=== PATIENT | female | born 1965 | race Caucasian/White ===

== ENCOUNTER → 2017-07-14 | Outpatient (CLI) | payer OTHER ==
[~2017-07-14] MED LIST: Aspir-Low81 MG PO; HEART PILL PO; Monodox100 MG PO
[2017-07-14 19:10] LABS: BASOPHILS ABSOLUTE AUTO 0.04 K/mm3 (0.00-0.23); BASOPHILS PERCENT AUTO 1 % (0-2); EOSINOPHILS ABSOLUTE AUTO 0.37 K/mm3 (0.00-0.68); EOSINOPHILS PERCENT AUTO 4 % (0-6); Hemoglobin 12.8 g/dL (11.5-16.0); IMMATURE GRAN ABSOLUTE AUTO 0.02 K/mm3 (0.00-0.10); IMMATURE GRAN PERCENT AUTO 0 % (0-1); LYMPHOCYTES ABSOLUTE AUTO 1.75 K/mm3 (0.84-5.20); LYMPHOCYTES PERCENT AUTO 21 % (21-46); MONOCYTES ABSOLUTE AUTO 0.59 K/mm3 (0.16-1.47); MONOCYTES PERCENT AUTO 7 % (4-13); Mean Corpuscular HGB 31.1 pg (26.0-34.0); Mean Corpuscular HGB Conc 33.7 g/dL (31.5-36.5); Mean Corpuscular Volume 92 fL (80-100); Mean Platelet Volume 11.3 fL (9.1-12.4); NEUTROPHILS ABSOLUTE AUTO 5.65 K/mm3 (1.96-9.15); NEUTROPHILS PERCENT AUTO 67 % (41-73); Platelet Count 268 K/mm3 (150-400); RDW Coefficient Variation 13.7 % (11.7-14.2); RDW Standard Deviation 46.6 fL (35.1-46.3); Red Blood Cell Count 4.12 M/mm3 (3.80-5.20); White Blood Cell Count 8.42 K/mm3 (4.00-11.30)
[2017-07-14 19:46] LABS: Alanine Aminotransfer (ALT/SGP 20 U/L (12-78); Albumin, Blood 3.2 g/dL (3.4-5.0); Albumin/Globulin Ratio 0.8 (0.8-1.8); Alk Phos 97 U/L (50-136); Anion Gap 6 mmol/L (6-16); Aspartate Aminotrans (AST/SGOT 13 U/L (12-37); Bilirubin, Total 0.3 mg/dL (0.1-1.0); Blood Urea Nitrogen 24 mg/dL (8-24); Bun/Creatinine Ratio 25.7 (12.0-20.0); CHOL/HDL RATIO 3.9; CO2, Blood 29 mmol/L (21-32); Calcium, Blood 8.9 mg/dL (8.5-10.1); Chloride, Blood 105 mmol/L (98-108); Cholesterol 189 mg/dL (50-200); Creatinine, Blood 0.93 mg/dL (0.40-1.00); Globulin, Blood 4.1 g/dL (2.2-4.0); Glomerular Filtration Rate >60 (60-); Glucose, Blood 117 mg/dL (70-99); HDL Cholesterol 49 mg/dL (>39); LDL/HDL RATIO 2.5; Low Density Lipoprotein Chol 125 mg/dL (0-110); Potassium, Blood 3.7 mmol/L (3.5-5.5); Sodium, Blood 140 mmol/L (136-145); Total Protein, Blood 7.3 g/dL (6.4-8.2); Triglycerides 76 mg/dL (30-160); Very Low Density Lipoprot Chol 15 mg/dL (6-32)
== END ==
LOC: LAB 16:55 → LAB SHORT 16:55
PROVIDERS: Physician Assistant
DX: Z13.1 Encounter for screening for diabetes mellitus (principal); Z13.220 Encounter for screening for lipoid disorders; I10 Essential (primary) hypertension
CPT/HCPCS: 80053; 80061; 83036; 85025

== ENCOUNTER 2019-02-07 09:24 | Day surgery (SDC) | payer OTHER ==
[~2019-02-07] VITALS: Ht 157.5 cm; Wt 113.0 kg
[~2019-02-07 09:24] MED LIST changes: +ALBU90OI; +CARV25 PO; +DULERA 100 MCG/13 GM; +HYDCHL25 PO; +LOSA50 PO; +MELO7.5; +NEURONTIN300 MG PO; +OMEP20ER PO; +TUDORZA PRESS400 MCG INH; +ZYRTEC10 M2 PO
--- NOTE | 2019-02-07 10:34 | NUR ---
Ambulatory in Day Surgery. Patient states colon prep results clear. History, Chart, Medications and Allergies reviewed before start of procedure. Lungs clear T/O to Auscultation. Pre-Op teaching done. Pt verbalizes understanding. Patient States Post-Procedure ride home has been arranged [place].
--- NOTE | 2019-02-07 10:43 | NUR ---
02/07/19 1043 LUIS MANUEL SY History, Chart, Medications and Allergies reviewed before start of procedure.3-LEAD EKG REVIEWED WITH PHYSICIAN PRIOR TO START OF PROCEDURE.O2 VIA N/C INTACT THROUGHOUT SEDATION/PROCEDURE. MONITOR INTACT WITH CONTINUOUS PULSE OXIMETRY AND INTERMITTENT BP.
--- NOTE | 2019-02-07 11:58 | NUR ---
Patient up to Ambulate independently. Gait steady. Discharge instructions reviewed with patient. Patient verbalizes understanding. Discharge instructions reviewed with patient. Patient verbalizes understanding. Copy given to patient to take home. Patient States Post-Procedure ride home has been arranged. Discharged via wheelchair to private car for ride home.
== END 2019-02-07 12:00 | disposition home or self-care (01) ==
LOC: ORSCMMR 09:24 → ORD 10:30 → ORSCMMR 10:30
PROVIDERS: Internal Medicine Gastroenterology
PROC: 0DBM8ZX Excision of Descending Colon, Via Natural or Artificial Opening Endoscopic, Diagnostic (ICD-10-PCS; principal; 2019-02-07 10:30)
PROC: 0DBN8ZX Excision of Sigmoid Colon, Via Natural or Artificial Opening Endoscopic, Diagnostic (ICD-10-PCS; principal; 2019-02-07 10:30)
PROC: 0DBE8ZX Excision of Large Intestine, Via Natural or Artificial Opening Endoscopic, Diagnostic (ICD-10-PCS; principal; 2019-02-07 10:30)
PROC: 0DBL8ZX Excision of Transverse Colon, Via Natural or Artificial Opening Endoscopic, Diagnostic (ICD-10-PCS; principal; 2019-02-07 10:30)
DX: R19.5 Other fecal abnormalities (principal); D12.3 Benign neoplasm of transverse colon; D12.4 Benign neoplasm of descending colon; D12.5 Benign neoplasm of sigmoid colon; K63.5 Polyp of colon; K57.30 Diverticulosis of large intestine without perforation or abscess without bleeding; I10 Essential (primary) hypertension; K21.9 Gastro-esophageal reflux disease without esophagitis; J44.9 Chronic obstructive pulmonary disease, unspecified; F17.210 Nicotine dependence, cigarettes, uncomplicated; Z79.899 Other long term (current) drug therapy; E66.01 Morbid (severe) obesity due to excess calories; Z68.42 Body mass index [BMI] 45.0-49.9, adult
CPT/HCPCS: 88305; J2250; J3010; J7120

== ENCOUNTER 2022-02-08 09:21 | Day surgery (SDC) | payer OTHER ==
[~2022-02-08] VITALS: Ht 157.5 cm; Wt 117.0 kg
[~2022-02-08 09:21] MED LIST changes: +Aspir 8181 MG PO; +EPINEPHRIN0.15 MG/03 IM; +IBUP400 PO; +POTA10T PO
--- NOTE | 2022-02-08 15:45 | NUR ---
ASSUMED CARE OF PT. PT AWAKE AND CONVERSING APPROPRIATELY; DENIES CHEST PAIN POST PROCEDURE. MONITOR SR 70'S, B/P 123/78, SPO2 97% RA. R RADIAL SITE NO SWELLING/HEMATOMA, TR BAND IN PLACE; RUE POSITIVE PLEUTH, 2 CC AIR REMOVED-SITE UNCHANGED.
--- NOTE | 2022-02-08 16:05 | NUR ---
TR BAND FULLY DEFLATED, NO S/S OF SWELLING/HEMATOMA.
--- NOTE | 2022-02-08 16:45 | NUR ---
PT AMB TO BATHROOM, GAIT STEADY; SITE UNCHANGED.
--- NOTE | 2022-02-08 16:50 | NUR ---
PT DRESSED SELF WITHOUT ISSUE, SITE UNCHANGED. TR BAND REMOVED, CLOTH DOT AND WRIST IMMOBILIZER PLACED; IV REMOVED-CANNULA INTACT.
--- NOTE | 2022-02-08 16:58 | NUR ---
PT AND FAMILY MEMBER RECEIVED DISCHARGE INSTRUCTIONS, MED LIST AND AFTER CARE INSTRUCTIONS; VERBALIZED GOOD UNDERSTANDING. PT LEFT FACILITY VIA W/C, CONDITION STABLE.
== END 2022-02-08 16:58 | disposition home or self-care (01) ==
LOC: MHTC 09:21
DX: Z01.810 Encounter for preprocedural cardiovascular examination (principal); I10 Essential (primary) hypertension; J44.9 Chronic obstructive pulmonary disease, unspecified; F17.200 Nicotine dependence, unspecified, uncomplicated; Z91.010 Allergy to peanuts
CPT/HCPCS: 76937; 93454; 99152; A9270; C1769; C1887; C1894; J1644; J2250; J3010; J7030; J7040; J7050; Q9967

== ENCOUNTER 2024-03-15 06:41 | Day surgery (SDC) | payer OTHER ==
[~2024-03-15] VITALS: Ht 157.5 cm; Wt 107.1 kg
[~2024-03-15 06:41] MED LIST changes: +Lactated Ringer's 1,000 ML IV SCH; +VITAMIN D5000 UNIT PO
[2024-03-15 07:17] VITALS: BP 144/92
--- NOTE | 2024-03-15 07:24 | NUR ---
Ambulatory in Day Surgery History, Chart, Medications and Allergies reviewed before start of procedure. Pre-Op teaching done. Pt verbalizes understanding. Patient States Post-Procedure ride home has been arranged.
[2024-03-15] MEDS ORDERED: propofoL 60 ML IV ONE (07:39)
--- NOTE | 2024-03-15 08:33 | NUR ---
03/15/24 0833 Caitlin Wong History, Chart, Medications and Allergies reviewed before start of procedure.MONITOR INTACT WITH CONTINUOUS PULSE OXIMETRY, CONTINUOUS END TITAL CO2, AND INTERMITTENT BLOOD PRESSURE.3-LEAD EKG REVIEWED WITH PHYSICIAN PRIOR TO START OF PROCEDURE.O2 VIA POM INTACT THROUGHOUT SEDATION/PROCEDURE.See Anesthesia record.
[2024-03-15 09:12] VITALS: BP 111/74
--- NOTE | 2024-03-15 09:32 | NUR ---
Discharge instructions reviewed with patient. Patient verbalizes understanding. Copy given to patient to take home. Patient States Post-Procedure ride home has been arranged. Discharged via wheelchair to private car for ride home.
== END 2024-03-15 09:33 | disposition home or self-care (01) ==
LOC: ORSCMMR 06:41 → ORD 08:00 → ORSCMMR 08:00
PROVIDERS: Internal Medicine Gastroenterology
PROC: 0DB48ZX Excision of Esophagogastric Junction, Via Natural or Artificial Opening Endoscopic, Diagnostic (ICD-10-PCS; principal; 2024-03-15 08:00)
PROC: 0DBM8ZX Excision of Descending Colon, Via Natural or Artificial Opening Endoscopic, Diagnostic (ICD-10-PCS; principal; 2024-03-15 08:00)
PROC: 0DB78ZX Excision of Stomach, Pylorus, Via Natural or Artificial Opening Endoscopic, Diagnostic (ICD-10-PCS; principal; 2024-03-15 08:00)
PROC: 0DB98ZX Excision of Duodenum, Via Natural or Artificial Opening Endoscopic, Diagnostic (ICD-10-PCS; principal; 2024-03-15 08:00)
PROC: 0DBL8ZX Excision of Transverse Colon, Via Natural or Artificial Opening Endoscopic, Diagnostic (ICD-10-PCS; principal; 2024-03-15 08:00)
PROC: 0DBN8ZX Excision of Sigmoid Colon, Via Natural or Artificial Opening Endoscopic, Diagnostic (ICD-10-PCS; principal; 2024-03-15 08:00)
DX: K21.9 Gastro-esophageal reflux disease without esophagitis (principal); R10.9 Unspecified abdominal pain; R63.4 Abnormal weight loss; D12.3 Benign neoplasm of transverse colon; D12.4 Benign neoplasm of descending colon; K57.30 Diverticulosis of large intestine without perforation or abscess without bleeding; G47.33 Obstructive sleep apnea (adult) (pediatric); J44.9 Chronic obstructive pulmonary disease, unspecified; J45.909 Unspecified asthma, uncomplicated; Z87.891 Personal history of nicotine dependence; Z79.82 Long term (current) use of aspirin; E66.01 Morbid (severe) obesity due to excess calories; Z68.41 Body mass index [BMI] 40.0-44.9, adult; Z79.899 Other long term (current) drug therapy; I12.9 Hypertensive chronic kidney disease with stage 1 through stage 4 chronic kidney disease, or unspecified chronic kidney disease; N18.9 Chronic kidney disease, unspecified
CPT/HCPCS: 88305; 88342; J2704; J7120

== ENCOUNTER 2024-04-27 08:59 | Day surgery (SDC) | payer OTHER ==
[~2024-04-27] VITALS: Ht 157.5 cm; Wt 107.0 kg
[~2024-04-27 08:59] MED LIST changes: +Bupivacaine 0.5% HCl 5 MG/ML 30MLVIAL ONE; +Bupivacaine 0.5% W/EPI 1:200000 SDV 30 ML Vial ONE; +FentaNYL Citrate 50 MCG/ML 2 ML Injection ONE; -Lactated Ringer's 1,000 ML IV SCH; +Midazolam HCl 1MG / ML 2ML Vial ONE
[2024-04-27] MEDS ORDERED: CeFAZolin Sodium 2,000 MG VIAL ONE (09:16)
[2024-04-27] MEDS ORDERED: propofoL 60 ML IV ONE (09:21)
[2024-04-27] MEDS ORDERED: POTCIT10 PO (09:52)
[2024-04-27] MEDS ORDERED: Lactated Ringer's 1,000 ML IV ONE ×2 (10:09→12:00)
--- NOTE | 2024-04-27 10:43 | NUR ---
04/27/24 1043 Santana Bal BLOCK: TIME OUT WITH DR GREWAL AT 1028. POPATEAL BLOCK PERFORMED BY DR GREWAL, PT TOLERATED WELL. BLOCK FINISHED AT 1040.
[2024-04-27] MEDS ORDERED: Dexamethasone Sod Phos 10 MG/ML 1ML VIAL ONE (11:11)
[2024-04-27] MEDS ORDERED: Ondansetron HCl 2 MG / ML 2ML Vial ONE ×2 (11:11→12:36)
[2024-04-27] MEDS ORDERED: Sugammadex Sodium 200 MG/2ML SDV (100 MG/ML) ONE ×2 (11:11→12:13)
--- NOTE | 2024-04-27 12:29 | NUR ---
04/27/24 1229 ADINA BAKER TITRATED FROM 8L NC TO 4L NC, SATS 100%.
[2024-04-27] MEDS ORDERED: FentaNYL Citrate 50 MCG/ML 2 ML Injection ONE (12:37)
--- NOTE | 2024-04-27 13:05 | NUR ---
04/27/24 1305 ADINA BAKER UP IN RECLINER, TOLERATING LIQUIDS. PAIN IS NOW A 5/10 TO LLE.
[2024-04-27] MEDS ORDERED: OxyCODONE HCL 5 MG TAB ONE (13:12)
[2024-04-27 13:17] VITALS: BP 113/75
== END 2024-04-27 13:42 | disposition home or self-care (01) ==
LOC: ORSCSDS 08:59
DX: M76.62 Achilles tendinitis, left leg (principal); M62.462 Contracture of muscle, left lower leg; J44.89 Other specified chronic obstructive pulmonary disease; Z87.891 Personal history of nicotine dependence; G47.33 Obstructive sleep apnea (adult) (pediatric); E66.01 Morbid (severe) obesity due to excess calories; Z68.41 Body mass index [BMI] 40.0-44.9, adult; Z79.899 Other long term (current) drug therapy; I12.9 Hypertensive chronic kidney disease with stage 1 through stage 4 chronic kidney disease, or unspecified chronic kidney disease
CPT/HCPCS: A9270; C1713; J0690; J1100; J2250; J2405; J2704; J3010; J7120